=== PATIENT | female | born 1960 | race Caucasian/White ===

== ENCOUNTER → 2016-08-24 | Outpatient (CLI) | payer BC | LOC: FIMAGING 10:16 | DX: Z12.31 Encounter for screening mammogram for malignant neoplasm of breast (principal); Z80.3 Family history of malignant neoplasm of breast | CPT/HCPCS: G0202 ==

== ENCOUNTER → 2017-09-16 | Outpatient (CLI) | payer BC, OTHER | LOC: FIMAGING 09:38 | PROVIDERS: ATTEND Obstetrics & Gynecology | DX: Z12.31 Encounter for screening mammogram for malignant neoplasm of breast (principal) ==

== ENCOUNTER 2017-12-07 20:09 | Emergency (ER) | payer BC ==
--- NOTE | 2017-12-07 20:46 | EDPHY ---
H & P Time Seen by Provider: 12/07/17 20:26 HPI/ROS: CHIEF COMPLAINT: Blood in the urine HISTORY OF PRESENT ILLNESS: Patient was diagnosed with a kidney stone on the right side last month after screening ultrasound was done. She does not have other symptoms of bleeding, she does not have bleeding gums when she brushes her teeth and heals normally after an accidental cut. Today she developed hematuria at 5:00 p.m.. She had normal urination earlier today. This is not associated with fever or chills or back or flank pain or abdominal pain. No dysuria. No fever or chills. She did have 0zone therapy today which she describes to me is having some of her blood removed, infused with ozone and exposed ultraviolet light, and then re -infused into her body. REVIEW OF SYSTEMS: Eye: no change in vision ENT: no sore throat Cardiac: no chest pain or syncope Pulmonary: no cough or SOB Abdomen: no vomiting, diarrhea, abdominal pain Musculoskeletal: Ongoing back pain, unchanged Skin: no rash Neuro: Some head pressure, feels like her legs are heavy. Constitutional: Ongoing fatigue, not changed : HPI A comprehensive 10 point review of systems is otherwise negative aside from elements mentioned in the history of present illness. PAST MEDICAL HISTORY: Lyme disease and chronic fatigue Social history: Here with spouse, patient of Dr. Martinez T 36.5 General Appearance: Alert and conversant, cooperative. Eyes: No scleral icterus. ENT, Mouth: Normal mucous membranes. Respiratory: Normal respiratory effort, breath sounds equal, lungs are clear to auscultation. Cardiovascular: Regular rate and rhythm. Gastrointestinal: Abdomen is soft and non tender. Neurological: Alert, face symmetric, normal motor and sensory in extremities. Skin: Warm and dry, no rashes. No bruising or petechiae. Musculoskeletal: No CVA tenderness. Psychiatric: Not agitated. Emergency Department course/MDM: Urinalysis sent; discussed with lab at 2054, no RBC seen, hemolyzed blood. Called Dr. Smith at [phone] no answer at 2057. 2102: Discussed with Rober would check haptoglobin, LDH, CBC, chem, CPK. 2133: Discussed with Sarah who did ozone therapy, patient got 100ml sterile water with the procedure. Her impression is that this is possibly the reason for hemolysis. 2141: Emili Martinez. She discussed the case with Juan who recommended IV hydration and follow-up in the office tomorrow. Smoking Status: Never smoked Constitutional: Initial Vital Signs Heart Rate 57 L 12/07/17 20:12 Respiratory Rate 18 12/07/17 20:12 Blood Pressure 146/81 H 12/07/17 20:12 O2 Sat (%) 100 12/07/17 20:12 O2 Delivery Mode Room Air Allergies/Adverse Reactions: No Known Allergies Allergy (Verified 12/07/17 20:12) Home Medications: Medication Instructions Recorded Doxycycline Hyclate [Doxycycline] 100 mg PO BID #14 cap 11/13/12 GABAPENTIN 600 mg PO 11/13/12 Rabeprazole Sodium [Aciphex] 20 mg PO DAILY 11/13/12 Medical Decision Making Differential Diagnosis: Included but not limited to hemolysis from immune, hemolysis from procedure, UTI , renal colic, rhabdomyolysis, renal failure - Data Points Laboratory Results: Laboratory Results 12/07/17 21:05 12/07/17 21:05 12/07/17 12/07/17 12/07/17 21:15 21:05 21:05 WBC RBC Hgb POC Hgb 11.9 gm/dL L gm/dL (12.6-16.3) Hct POC Hct 35 % L % (38-47) MCV MCH MCHC RDW Plt Count MPV Neut % (Auto) Lymph % (Auto) [place] % (Auto) Eos % (Auto) Baso % (Auto) Nucleat RBC Rel Count Absolute Neuts (auto) Absolute Lymphs (auto) Absolute Monos (auto) Absolute Eos (auto) Absolute Basos (auto) Absolute Nucleated RBC Immature Gran % Immature Gran # Haptoglobin Pending POC Sodium 133 mEq/L L mEq/L (135-145) Sodium 131 mEq/L L mEq/L (135-145) POC Potassium 3.6 mEq/L mEq/L (3.3-5.0) Potassium 3.6 mEq/L mEq/L (3.3-5.0) POC Chloride 96 mEq/L L mEq/L (97-110) Chloride 97 mEq/L mEq/L (97-110) Carbon Dioxide 24 mEq/l mEq/l (22-31) Anion Gap 10 mEq/L mEq/L (8-16) POC BUN 15 mg/dL mg/dL (7-23) BUN 14 mg/dL mg/dL (7-23) Creatinine 0.8 mg/dL mg/dL (0.6-1.0) POC Creatinine 0.9 mg/dL mg/dL (0.6-1.0) Estimated GFR > 60 Glucose 130 mg/dL H mg/dL (70-100) POC Glucose 141 mg/dL H mg/dL (70-100) Calcium 9.4 mg/dL mg/dL (8.5-10.4) Lactate Dehydrogenase 1051 IU/L H IU/L (313-618) Creatine Kinase 62 IU/L IU/L (0-156) Urine Color Urine Appearance Urine pH Ur Specific [place] Urine Protein Urine Ketones Urine Blood Urine Nitrate Urine Bilirubin Urine Urobilinogen Ur Leukocyte Esterase Urine RBC Urine WBC Ur Epithelial Cells Urine Mucus Urine Glucose 12/07/17 12/07/17 21:05 20:15 WBC 5.14 10^3/uL 10^3/uL (3.80-9.50) RBC 3.87 10^6/uL L 10^6/uL (4.18-5.33) Hgb 12.5 g/dL L g/dL (12.6-16.3) POC Hgb Hct 35.0 % L % (38.0-47.0) POC Hct MCV 90.4 fL fL (81.5-99.8) MCH 32.3 pg pg (27.9-34.1) MCHC 35.7 g/dL g/dL (32.4-36.7) RDW 12.2 % % (11.5-15.2) Plt Count 150 10^3/uL 10^3/uL (150-400) MPV 9.0 fL fL (8.7-11.7) Neut % (Auto) 72.9 % % (39.3-74.2) Lymph % (Auto) 17.3 % % (15.0-45.0) [place] % (Auto) 8.4 % % (4.5-13.0) Eos % (Auto) 0.8 % % (0.6-7.6) Baso % (Auto) 0.4 % % (0.3-1.7) Nucleat RBC Rel Count 0.0 % % (0.0-0.2) Absolute Neuts (auto) 3.75 10^3/uL 10^3/uL (1.70-6.50) Absolute Lymphs (auto) 0.89 10^3/uL L 10^3/uL (1.00-3.00) Absolute Monos (auto) 0.43 10^3/uL 10^3/uL (0.30-0.80) Absolute Eos (auto) 0.04 10^3/uL 10^3/uL (0.03-0.40) Absolute Basos (auto) 0.02 10^3/uL 10^3/uL (0.02-0.10) Absolute Nucleated RBC 0.00 10^3/uL 10^3/uL (0-0.01) Immature Gran % 0.2 % % (0.0-1.1) Immature Gran # 0.01 10^3/uL 10^3/uL (0.00-0.10) Haptoglobin POC Sodium Sodium POC Potassium Potassium POC Chloride Chloride Carbon Dioxide Anion Gap POC BUN BUN Creatinine POC Creatinine Estimated GFR Glucose POC Glucose Calcium Lactate Dehydrogenase Creatine Kinase Urine Color RED Urine Appearance TURBID Urine pH TNP Ur Specific [place] TNP Urine Protein TNP Urine Ketones TNP Urine Blood TNP Urine Nitrate TNP Urine Bilirubin TNP Urine Urobilinogen TNP Ur Leukocyte Esterase TNP Urine RBC NONE SEEN /hpf /hpf (0-3) Urine WBC 0-1 /hpf /hpf (0-3) Ur Epithelial Cells TRACE /lpf /lpf (NONE-1+) Urine Mucus 1+ /lpf /lpf (NONE-1+) Urine Glucose TNP Medications Given: Discontinued Medications Sodium Chloride (Ns) 1,000 mls @ 0 mls/hr IV EDNOW ONE; Wide Open PRN Reason: Protocol Stop: 12/07/17 21:50 Last Admin: 12/07/17 21:55 Dose: 1,000 mls Sodium Chloride (Ns) 1,000 mls @ 0 mls/hr IV EDNOW ONE; Wide Open PRN Reason: Protocol Stop: 12/07/17 21:50 Last Admin: 12/07/17 21:55 Dose: 1,000 mls Point of Care Test Results: Chemistry 12/07/17 21:15 POC Sodium 133 mEq/L L mEq/L (135-145) POC Potassium 3.6 mEq/L mEq/L (3.3-5.0) POC Chloride 96 mEq/L L mEq/L (97-110) POC BUN 15 mg/dL mg/dL (7-23) POC Creatinine 0.9 mg/dL mg/dL (0.6-1.0) POC Glucose 141 mg/dL H mg/dL (70-100) ISTAT H&H 12/07/17 21:15 POC Hgb 11.9 gm/dL L gm/dL (12.6-16.3) POC Hct 35 % L % (38-47) Departure - Departure Disposition: Home, Routine, Self-Care Clinical Impression: hemolysis intravascular Condition: Good Instructions: Hematuria (ED) Additional Instructions: Drink plenty of fluids. Follow-up tomorrow with Dr. Martinez in the office. Referrals: Butch Martinez MD [Primary Care Provider] - 1 day without fail
[2017-12-07 21:19] LABS: PLATELET COUNT 150 10^3/uL (150-400)
[2017-12-07] MEDS ORDERED: NS 1,000 ML IV ONE ×2 (21:49)
[2017-12-07 22:21] LABS: CREATINE KINASE 62 IU/L (0-156)
[2017-12-07 23:22] VITALS: BP 122/74
== END 2017-12-07 23:21 | disposition home or self-care (01) ==
DX: D59.9 Acquired hemolytic anemia, unspecified (principal); E86.9 Volume depletion, unspecified
CPT/HCPCS: 82435-PO; 82565-PO; 82947-PO; 83010-90; 84132-PO; 84295-PO; 84520-PO; 85014-PO

== ENCOUNTER → 2018-10-30 | Outpatient (CLI) | payer BC | LOC: FIMAGING 13:25 | PROVIDERS: ATTEND Internal Medicine | DX: Z12.31 Encounter for screening mammogram for malignant neoplasm of breast (principal) ==